=== PATIENT | female | born 1940 | race Caucasian/White ===

== ENCOUNTER 2018-09-22 02:15 | Emergency (ER) | payer BC ==
[~2018-09-22] VITALS: Ht 157.5 cm; Wt 51.3 kg
[~2018-09-22 02:15] MED LIST: FISHOIL; PREMARIN0.625 MG PO; RECLAST 55 MG/100 M IV
[2018-09-22] MEDS ORDERED: XANAX 0.25 MG0.25 MG PO (02:26)
[2018-09-22 05:30] LABS: ABSOLUTE NEUTROPHILS 5.6 thou/uL (1.4-8.2); BASOPHILS 1.3 % (0.0-2.0); EOSINOPHILS 1.3 % (0.0-3.0); HEMATOCRIT 45.7 % (37.0-47.0); HEMOGLOBIN 15.5 gm/dL (12.0-15.0); MCH 29.9 pg (26.0-34.0); MCHC 33.9 g/dL (28.0-37.0); MCV 88.1 fL (80.0-100.0); MONOCYTES 10.2 % (1.0-8.0); PLATELET COUNT 193 thou/uL (150-400); POLYS 58.2 % (36.0-66.0); RBC 5.19 mil/uL (4.20-5.00); RDW 14.1 % (10.5-14.5); WBC 9.7 thou/uL (4.0-11.0)
[2018-09-22 05:44] LABS: ANION GAP 10 mmol/L (7-16); BUN 14 mg/dL (7-18); CALCIUM 9.7 mg/dL (8.5-10.1); CHLORIDE 104 mmol/L (98-107); CO2 26 mmol/L (21-32); GLUCOSE 96 mg/dL (74-106); SODIUM 140 mmol/L (136-145)
[2018-09-22 05:52] LABS: TROPONIN-I <0.06 ng/mL (<0.06)
[2018-09-22 06:12] VITALS: BP 132/42
--- NOTE | 2018-09-22 10:29 | EKG ---
[place] [address] [facility] [employer] [address] ELECTROCARDIOGRAM REPORT Name: MIMILUCY Efren Room #: DEP [facility]#: [id number] ������������������ Admission: 09/22/18 ������������������ Attend Phys: Discharge: 09/22/18 ������������������ Date of : 42 Report #: [id number] ����������������������������������������������������������������� [id number] THIS REPORT FOR: //name// [facility] ED Test Date: 2018-09-22 Test Time: 03:56:13 Pat Name: LUCY LE Department: Room: Gender: F [employer]: aurelia : 1940 Requested By: Ramu Bustamante Order Number: [id number] MD: Oliverio Ferguson Measurements Intervals [place] Rate: 94 P: 76 DC: 137 QRS: -25 QRSD: 115 T: 48 QT: 367 QTc: 459 Interpretive Statements Sinus tachycardia Ventricular trigeminy Biatrial enlargement Incomplete RBBB and LAFB No previous ECG available for comparison Electronically Signed On 09-22-2018 10:29:07 CDT by Oliverio Ferguson [email or web address] ��������������������������������������������� <ELECTRONICALLY SIGNED> ���������������������������������������� By: Oliverio Ferguson MD, [facility] ��������������������������������������������� 09/22/18 [id number] Oliverio Ferguson MD, FACC /EPI
== END 2018-09-22 06:13 | disposition home or self-care (01) ==
LOC: ER 02:15
PROVIDERS: Emergency Medicine
DX: R03.0 Elevated blood-pressure reading, without diagnosis of hypertension (principal); I49.3 Ventricular premature depolarization; M79.7 Fibromyalgia; M81.0 Age-related osteoporosis without current pathological fracture; Z88.2 Allergy status to sulfonamides